=== PATIENT | male | born 1965 | race Caucasian/White ===

== ENCOUNTER 2020-05-21 15:25 | Outpatient (CLI) | payer BC ==
[2020-05-21 20:43] LABS: ALBUMIN 4.3 g/dL (3.2-5.5); ALBUMIN/GLOBULIN RATIO 1.4 (1.0-2.2); ALKALINE PHOSPHATASE 60 IU/L (42-121); ALT ALANINE AMINOTRANSFERASE 25 IU/L (10-60); AST ASPARTATE AMINOTRANSFERASE 21 IU/L (10-42); BILIRUBIN,TOTAL 0.4 mg/dL (0.2-1.0); BUN - BLOOD UREA NITROGEN 18 mg/dL (6-20); CALCIUM 8.9 mg/dL (8.5-10.3); CARBON DIOXIDE - CO2 24 mmol/L (21-32); CHLORIDE 107 mmol/L (101-111); CHOL/HDL RATIO 3.8 (<5.0); CHOLESTEROL 155 mg/dL; CREATININE 0.9 mg/dL (0.6-1.2); GLUCOSE 93 mg/dL (70-100); HDL CHOLESTEROL 41 mg/dL; LDL CHOLESTEROL,CALCULATED 101 mg/dL; LDL/HDL RATIO 2.5 (<3.6); SODIUM 138 mmol/L (135-145); TOTAL PROTEIN 7.4 g/dL (6.7-8.2); VLDL CHOLESTEROL 13 mg/dL
== END 2020-05-21 15:26 | disposition home or self-care (01) ==
LOC: LAB.S 15:25
PROVIDERS: ATTEND Family Medicine
DX: R79.89 Other specified abnormal findings of blood chemistry (principal); Z13.6 Encounter for screening for cardiovascular disorders
CPT/HCPCS: 36415; 80053; 80061; 83721; 84403

== ENCOUNTER 2024-06-06 08:35 | Outpatient (CLI) | payer BC ==
--- NOTE | 2024-06-06 13:20 | XRAY Report ---
PROCEDURE: Wrist 3+V LT INDICATIONS: PAIN OF LEFT WRIST TECHNIQUE: 3 views of the wrist were acquired. COMPARISON: None. FINDINGS: Bones: No fractures or dislocations. Calcification of the triangular fibrocartilage Soft tissues: No radiographically evident soft tissue swelling. IMPRESSION: No acute bony abnormality. 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
== END 2024-06-06 08:36 | disposition home or self-care (01) ==
LOC: DI.S 08:35
DX: M25.532 Pain in left wrist (principal)